=== PATIENT | male | born 1955 | race Caucasian/White ===

== ENCOUNTER 2019-01-22 10:19 | Emergency (ER) | payer MEDICARE, OTHER ==
[~2019-01-22] VITALS: Ht 182.9 cm; Wt 59.9 kg
[2019-01-22 10:23] VITALS: BP 159/84
--- NOTE | 2019-01-22 10:27 | NUR ---
PT AMBULATES TO BED 11
--- NOTE | 2019-01-22 10:30 | NUR ---
63 Y M C/O SHORTNESS OF BREATH SINCE YESTERDAY. HARD TIME CATCHING BREATH. LUNG SOUNDS CLEAR BILATERALLY. REPORTS LOST 10LB IN LAST MONTH, NIGHT SWEATS, GREEN SPUTUM. REPORTS COUGH AND RUNNY NOSE X 1 WEEK. NO PAIN AT THIS TIME BED IS DOWN, LOCKED, BED RAIL X 1, ERMD NOTIFIED OF PATIENT STATUS RX: LAMICTAL, TRAZADONE, LEXAPRO DX: ANXIETY
[2019-01-22] MEDS ORDERED: predniSONE 20 MG TAB PO ONE (10:40)
[2019-01-22] MEDS ORDERED: ALBUTEROL 0.083% 2.5 MG/3 ML NEBU INH ONE ×4 (10:40→18:20)
[2019-01-22] MEDS ORDERED: IPRATROPIUM 0.02% 0.5 MG/2.5 ML NEBU INH ONE ×2 (10:40→11:04)
--- NOTE | 2019-01-22 10:43 | NUR ---
X-RAY AT BEDSIDE
--- NOTE | 2019-01-22 10:44 | NUR ---
PT SAT 91% O2 AT THSI TIME, PT PUT ON OXYGEN 3L, SAT 95% AT THIS TIME
--- NOTE | 2019-01-22 10:46 | NUR ---
Lyndsey duncan in [facility] - 01/22/19 at 1046 by JANELLE XRAY AT BEDSIDE
--- NOTE | 2019-01-22 10:47 | NUR ---
RT AT BEDSIDE
--- NOTE | 2019-01-22 10:54 | NUR ---
SWAB DONE AND GIVEN TO LAB LADY
--- NOTE | 2019-01-22 11:04 | NUR ---
PYXIS IS NOT WORKING AT THIS TIME, RX CALLED TO COME OVER TO LOOK AT IT, PT MEDS CANNOT BE PULLED OUT AT THIS TIME
--- NOTE | 2019-01-22 11:08 | NUR ---
RT AT BEDSIDE FOR BREATHING TREATMENT AT THIS TIME
--- NOTE | 2019-01-22 11:20 | NUR ---
ORDERED BREATHING TREATMENTS ADMINISTERED. TOLERATED WELL, NO ADVERSE SIDE EFFECTS. WILL CONTINUE TO MONITOR.
--- NOTE | 2019-01-22 11:22 | NUR ---
DR MC AT BEDSIDE
--- NOTE | 2019-01-22 12:57 | NUR ---
RT AT BEDSIDE
--- NOTE | 2019-01-22 13:00 | NUR ---
PT IS SAT AT 88% WITHOUT OXYGEN, PT IS STILL ON 3 L OF OXYGEN AT THIS TIME SAT AT 95% AT THIS TIME
[2019-01-22 13:54] LABS: BASOPHILS % (AUTO) 0.2 % (0.0-2.0); EOSINOPHILS % (AUTO) 0.1 % (0.0-4.0); HEMATOCRIT 44.1 % (36-52); HEMOGLOBIN 14.6 g/dL (12.0-18.0); LYMPHOCYTES # (AUTO) 0.8 K/uL (2.0-11.5); LYMPHOCYTES % (AUTO) 7.6 % (20.5-51.1); MEAN CORPUSCULAR HEMOGLOBIN 30 pg (27-31); MEAN CORPUSCULAR HGB CONC 33 g/dL (33-37); MEAN CORPUSCULAR VOLUME 90.1 fL (80-94); MONOCYTES # (AUTO) 0.3 K/uL (0.8-1.0); MONOCYTES % (AUTO) 2.9 % (1.7-9.3); NEUTROPHILS # (AUTO) 9.5 K/uL (1.8-7.7); NEUTROPHILS % (AUTO) 89.2 % (42.2-75.2); PLATELET COUNT (AUTO) 213 K/uL (140-450); RED BLOOD CELL COUNT(AUTO) 4.89 MIL/uL (4.20-6.10); RED CELL DISTRIBUTION WIDTH 14.5 % (11.6-13.7); WHITE BLOOD COUNT (AUTO) 10.6 K/uL (4.8-10.8)
--- NOTE | 2019-01-22 14:00 | NUR ---
Patient appears to be resting comfortably in bed. Vital Signs within normal limits. Respirations even and unlabored.
[2019-01-22 14:04] LABS: ANION GAP 15.5 (8-16); CARBON DIOXIDE 25.1 mmol/L (21-32); CREATININE 0.9 mg/dL (0.7-1.3); POTASSIUM 3.6 mmol/L (3.5-5.1)
[2019-01-22 14:09] LABS: ALBUMIN 3.4 g/dL (3.4-5.0); TOTAL BILIRUBIN 0.3 mg/dL (0.0-1.0)
--- NOTE | 2019-01-22 15:00 | NUR ---
PT WILL BE TRANSFERED [facility]
--- NOTE | 2019-01-22 16:06 | NUR ---
PT WILL BE TRANSFEED TO [facility] TO ROOM 110-A, WITH DR. MENDEZ, WAITING ON TRANSPORT
--- NOTE | 2019-01-22 16:12 | NUR ---
gave report to paula at [facility].
--- NOTE | 2019-01-22 16:15 | NUR ---
ETA FOR TRANSFER IS 90 MIN
--- NOTE | 2019-01-22 16:48 | NUR ---
PT UP IN BED EATING AT THIS TIME WAITING FOR TRANSFER
--- NOTE | 2019-01-22 18:04 | NUR ---
PT RESTING IN BED ALERT AND AWAKE ON HIS PHONE, PT IS SAT AT 91% AT THIS TIME, EVEN AND UNLBORED BREATHING ON ROOM AIR
--- NOTE | 2019-01-22 18:17 | NUR ---
[facility] CALLED [facility] 90 MINUTE DELAY DUE TO HIGH VOLUME OF 911 CALLS, ER MD AWARE AND PT AWARE
[2019-01-22] MEDS ORDERED: methylPREDNISolone SS 125 MG/2 ML VIAL IVP ONE (18:20)
--- NOTE | 2019-01-22 18:35 | NUR ---
RT AT BEDSIDE
--- NOTE | 2019-01-22 20:35 | NUR ---
CALLED ERIN WILLAMS TO REPORT PT LEAVING HOSPITAL. DEYANIRA STOKES MADE AWARE.
--- NOTE | 2019-01-22 20:37 | NUR ---
PATIENT CALLED AND STATED HE GOT TIRED OF WAITING AND WENT HOME. PT IS ON HIS WAY BACK TO HOSPITAL. ER MD MADE AWARE.
--- NOTE | 2019-01-22 21:03 | NUR ---
PT RETURNED TO THE ER, PT HAD TAKEN OUT HIS IV AND STATED HE SMOKED SOME [place] WHEN HE GOT HOME. IV WAS STARTED IN THE RIGHT FORARM 20 G. VSS AD WAS TRANSFERRED TO [facility]. ER MD MADE AWARE.
[2019-01-22 21:05] VITALS: BP 146/79
--- NOTE | 2019-01-22 21:05 | NUR ---
GAVE REPORT TO [facility], VSS READY FOR TRANSPORT
== END 2019-01-22 21:05 | disposition short-term general hospital (02) ==
LOC: MED 10:19
DX: B34.9 Viral infection, unspecified (principal); R09.02 Hypoxemia; F17.210 Nicotine dependence, cigarettes, uncomplicated; F12.10 Cannabis abuse, uncomplicated; F41.9 Anxiety disorder, unspecified
CPT/HCPCS: 36415; 36600; 71045; 80053; 82803; 83605; 83880; 84484; 85025; 85379; 87040; 87804; 93005; 94640; 96374; 99285; J2930; J7512; J7613; J7644; Q0092

== ENCOUNTER 2019-02-07 02:47 | Emergency (ER) | payer MEDICARE, OTHER ==
[~2019-02-07] VITALS: Ht 182.9 cm; Wt 61.2 kg
[2019-02-07 02:47] VITALS: BP 154/90
--- NOTE | 2019-02-07 02:47 | NUR ---
Patient BIBA BLS, transferred to bed 6. RN evaluating patient at bedside.
--- NOTE | 2019-02-07 03:00 | NUR ---
63 YO MALE BIBA FOR C/O L FLANK PAIN. PT HAS N/V X1 GIVEN ZOFRAN IN TRANSIT TO ED. PT DENIES FEVER CHILLS @ THIS TIME. PT AAOX4, S1 S2 NO EDEMA NOTED. LUNGS CLEAR EVEN UNLABORED. ABD SOFT NON DISTENDED. SKIN PINK WARM DRY INTACT. VSS. SUSI LOCKED IN LOWEST POSITION ER @ BEDSIDE. MED HX: COPD
[2019-02-07 03:16] LABS: BILIRUBIN,URINE NEGATIVE (NEGATIVE); BLOOD, URINE NEGATIVE (NEGATIVE); COLOR,URINE YELLOW (YELLOW); LEUKOCYTE ESTERASE ,URINE NEGATIVE (NEGATIVE); NITRITE, URINE NEGATIVE (NEGATIVE); UGLUCOSE NEGATIVE (NEGATIVE)
[2019-02-07 03:19] LABS: BASOPHILS # (AUTO) 0.1 K/uL (0.00-0.22); BASOPHILS % (AUTO) 0.5 % (0.0-2.0); EOSINOPHILS # (AUTO) 0.1 K/uL (0-0.4); EOSINOPHILS % (AUTO) 0.7 % (0.0-4.0); HEMATOCRIT 42.7 % (36-52); HEMOGLOBIN 13.9 g/dL (12.0-18.0); LYMPHOCYTES # (AUTO) 1.3 K/uL (2.0-11.5); LYMPHOCYTES % (AUTO) 11.3 % (20.5-51.1); MEAN CORPUSCULAR HEMOGLOBIN 30 pg (27-31); MEAN CORPUSCULAR HGB CONC 32 g/dL (33-37); MEAN CORPUSCULAR VOLUME 91.4 fL (80-94); MONOCYTES # (AUTO) 0.6 K/uL (0.8-1.0); MONOCYTES % (AUTO) 5.5 % (1.7-9.3); NEUTROPHILS # (AUTO) 9.5 K/uL (1.8-7.7); PLATELET COUNT (AUTO) 262 K/uL (140-450); RED BLOOD CELL COUNT(AUTO) 4.67 MIL/uL (4.20-6.10); RED CELL DISTRIBUTION WIDTH 14.6 % (11.6-13.7); WHITE BLOOD COUNT (AUTO) 11.6 K/uL (4.8-10.8)
[2019-02-07 03:25] LABS: APPEARANCE,URINE HAZY (CLEAR); RBC,URINE 0-5 /HPF (0-5); WBC,URINE 0-5 /HPF (0-5)
[2019-02-07 03:37] LABS: POTASSIUM 4.3 mmol/L (3.5-5.1)
[2019-02-07 03:38] LABS: ANION GAP 9.1 (8-16); CARBON DIOXIDE 32.2 mmol/L (21-32)
[2019-02-07 03:48] LABS: TOTAL BILIRUBIN 0.4 mg/dL (0.0-1.0)
[2019-02-07] MEDS ORDERED: NACL 0.9% 1,000 ML IV ONE ×2 (03:55→06:50)
[2019-02-07] MEDS ORDERED: PIPERACILLIN/TAZOBACTAM 3.375 GM in DEXTROSE 5% 50 ML IV ONE (03:55)
[2019-02-07] MEDS ORDERED: PIPERACILLIN/TAZOBACTAM 3.375 GM VIAL IV ONE (04:11)
--- NOTE | 2019-02-07 04:20 | NUR ---
BLOOD CX X2 DRAWN @ [id number]
[2019-02-07] MEDS ORDERED: MORPHINE SULFATE 4 MG/ML SYR IVP ONE (05:30)
[2019-02-07] MEDS ORDERED: MORPHINE SULFATE 2 MG/ML SYR ONE (05:48)
--- NOTE | 2019-02-07 07:05 | NUR ---
REPORT GIVEN TO LEONORA RN @ ACCEPTING FACILITY [facility]. DR CHAUHAN ACCEPTING GOING TO ROOM 118B.
--- NOTE | 2019-02-07 07:15 | NUR ---
REPORT RECIEVED FROM MARTY/ISRAEL. VSS AT THIS TIME. PT SLEEPING.
--- NOTE | 2019-02-07 07:16 | NUR ---
REPORT GIVEN TO DAY SHIFT RN FOR CONTINUITY OF CARE. NO ACUTE DISTRESS. VSS.
[2019-02-07 08:49] VITALS: BP 138/72
--- NOTE | 2019-02-07 08:49 | NUR ---
Patient to be transferred to [facility]. Is being transferred due to INSURANCE REQUEST. Receiving facility has accepting physician and available space. ER physician has signed transfer form. Patient or responsible constitution party has agreed to transfer and signed form. Patient belongings inventoried and will be sent with patient. Copy of nursing notes, lab reports, EKG, Physicians Orders and X-rays to be sent with patient. Report called to LEONORA WOOD at receiving facility. S ambulance service has been called for transfer. ETA is 90 MIN.
== END 2019-02-07 08:49 | disposition short-term general hospital (02) ==
LOC: MED 02:47
DX: K85.90 Acute pancreatitis without necrosis or infection, unspecified (principal); J44.9 Chronic obstructive pulmonary disease, unspecified
CPT/HCPCS: 36415; 71045; 74176; 80053; 81001; 83605; 83690; 84484; 85025; 87040; 87086; 87804; 96365; 96375; 99285; J2270; J2543; J7030; Q0092; 93005